=== PATIENT | female | born 1970 | race Native Hawaiian/Other Pacific Islander ===

== ENCOUNTER 2021-01-26 13:12 | Outpatient (CLI) | payer OTHER | END 2021-01-26 23:59 | disposition home or self-care (01) | LOC: US 13:12 | PROVIDERS: ATTEND Obstetrics & Gynecology | DX: R92.2 Inconclusive mammogram (principal) ==

== ENCOUNTER 2022-06-15 09:59 | Outpatient (CLI) | payer OTHER | END 2022-06-15 19:58 | disposition home or self-care (01) | LOC: CT 09:59 | PROVIDERS: ATTEND Nurse Practitioner Family | DX: M25.521 Pain in right elbow (principal) ==

== ENCOUNTER 2022-07-29 08:20 | Outpatient (CLI) | payer OTHER | END 2022-07-29 18:49 | disposition home or self-care (01) | LOC: MAMMO 08:20 | PROVIDERS: ATTEND Nurse Practitioner Family | DX: Z12.31 Encounter for screening mammogram for malignant neoplasm of breast (principal) ==